=== PATIENT | female | born 1955 | race Caucasian/White ===

== ENCOUNTER → 2019-05-18 | Outpatient (CLI) | payer OTHER ==
[~2019-05-18] MED LIST: ASCRIPTIN1 TAB PO; ATENOLOL50 MG PO; CEFTIN250 MG PO; DUONEB 3 MG/3 ML3 M1; FLOVENT 110 M110 MCG; PREDNISONE20 MG PO; PREVACID30 MG PO; SINGULAIR10 MG PO
[2019-05-18 11:03] LABS: BASO % 0.8 % (0.0-1.0); EOS # 0.1 10*3/uL (0.0-0.4); HEMATOCRIT 46.6 % (37.0-47.0); HEMOGLOBIN 15.8 g/dl (12.0-16.0); LYMPH # 1.7 10*3/uL (1.3-4.4); LYMPH % 33.6 % (27.0-41.0); MEAN CELL VOLUME 96.1 fl (81.0-99.0); MEAN CORPUSCULAR HGB 32.6 pg (27.0-31.0); MEAN CORPUSCULAR HGB CONC 33.9 g/dl (33.0-37.0); MEAN PLATELET VOLUME 11.4 fl (9.6-12.3); MONO # 0.3 10*3/uL (0.1-1.0); MONO % 6.4 % (3.0-9.0); NEUT # 2.8 10*3/uL (2.3-7.9); PLATELET COUNT AUTOMATED 130 10*3/uL (130-400); RED BLOOD COUNT 4.85 10*6/uL (4.10-5.10); RED CELL DISTRI WIDTH 12.2 % (0-14.5)
[2019-05-18 11:33] LABS: ALBUMIN 3.9 gm/dl (3.1-4.5); ALKALINE PHOSPHATASE 109 U/L (45-117); BUN 12 mg/dl (7-24); CHLORIDE 101 mmol/L (98-107); CHOLESTEROL 208 mg/dL (<200); FREE T4 1.13 ng/dl (0.76-1.46); HDL CHOLESTEROL 61 mg/dl (40-60); LDL CHOLESTEROL 108 mg/dL (9-159); POTASSIUM 4.3 mmol/L (3.5-5.1); SGOT/AST 20 IU/L (3-35); SGPT/ALT 31 U/L (12-78); SODIUM 137 mmol/L (136-145); TOTAL PROTEIN 7.5 gm/dL (6.4-8.2); TRIGLYCERIDES 193 mg/dl (<150); VLDL CHOLESTEROL 39 mg/dL (6-40)
[2019-05-18 12:24] LABS: VITAMIN D, 25-HYDROXY 33.2 ng/mL (30-100)
== END | disposition home or self-care (01) ==
LOC: LAB 10:42
PROVIDERS: Internal Medicine
DX: Z13.21 Encounter for screening for nutritional disorder (principal); Z13.220 Encounter for screening for lipoid disorders; E55.9 Vitamin D deficiency, unspecified; E11.9 Type 2 diabetes mellitus without complications; I10 Essential (primary) hypertension

== ENCOUNTER → 2019-05-23 | Outpatient (CLI) | payer OTHER | END | disposition home or self-care (01) | LOC: RAD 10:49 | DX: Z13.820 Encounter for screening for osteoporosis (principal); Z78.0 Asymptomatic menopausal state; Z97.10 Presence of artificial limb (complete) (partial), unspecified ==

== ENCOUNTER → 2020-08-16 | Outpatient (CLI) | payer OTHER | END | disposition home or self-care (01) | LOC: US 09:58 → MRI 11:00 | PROVIDERS: ATTEND Internal Medicine | DX: I73.9 Peripheral vascular disease, unspecified (principal); M54.5 Low back pain ==

== ENCOUNTER → 2020-12-20 | Outpatient (CLI) | payer OTHER | END | disposition home or self-care (01) | LOC: RAD 09:05 | PROVIDERS: ATTEND Neurological Surgery | DX: M51.37 Other intervertebral disc degeneration, lumbosacral region (principal); M47.816 Spondylosis without myelopathy or radiculopathy, lumbar region ==

== ENCOUNTER → 2021-01-20 | Outpatient (CLI) | payer OTHER | END | disposition home or self-care (01) | LOC: CARD 08:30 | PROVIDERS: ATTEND Internal Medicine | DX: I51.7 Cardiomegaly (principal) ==

== ENCOUNTER → 2021-04-03 | Outpatient (CLI) | payer OTHER, MEDICARE ==
[2021-04-03 09:51] LABS: BASO % 0.8 % (0.0-1.0); EOS # 0.4 10*3/uL (0.0-0.4); EOS % 8.6 % (1.0-4.0); HEMATOCRIT 38.2 % (37.0-47.0); LYMPH # 0.9 10*3/uL (1.3-4.4); LYMPH % 19.2 % (27.0-41.0); MEAN CELL VOLUME 92.3 fl (81.0-99.0); MEAN CORPUSCULAR HGB 29.7 pg (27.0-31.0); MEAN CORPUSCULAR HGB CONC 32.2 g/dl (33.0-37.0); MEAN PLATELET VOLUME 10.1 fl (9.6-12.3); MONO # 0.3 10*3/uL (0.1-1.0); MONO % 5.9 % (3.0-9.0); NEUT # 3.1 10*3/uL (2.3-7.9); NEUT % 65.3 % (47.0-73.0); PLATELET COUNT AUTOMATED 193 10*3/uL (130-400); RED BLOOD COUNT 4.14 10*6/uL (4.10-5.10); RED CELL DISTRI WIDTH 13.2 % (0-14.5); WHITE BLOOD COUNT 4.8 10*3/uL (4.8-10.8)
[2021-04-03 10:19] LABS: ALBUMIN 3.4 gm/dl (3.1-4.5); ALKALINE PHOSPHATASE 113 U/L (45-117); BUN 17 mg/dl (7-24); CHLORIDE 103 mmol/L (98-107); CHOLESTEROL 159 mg/dL (<200); CREATININE 0.92 mg/dL (0.55-1.02); FREE T4 1.24 ng/dl (0.76-1.46); LDL CHOLESTEROL 69 mg/dL (9-159); POTASSIUM 4.5 mmol/L (3.5-5.1); SGOT/AST 12 IU/L (3-35); SGPT/ALT 18 U/L (12-78); SODIUM 135 mmol/L (136-145); TOTAL PROTEIN 7.4 gm/dL (6.4-8.2); TRIGLYCERIDES 166 mg/dl (<150)
[2021-04-03 10:32] LABS: VITAMIN D, 25-HYDROXY 84.8 ng/mL (30-100)
== END | disposition home or self-care (01) ==
LOC: LAB 09:32
PROVIDERS: ATTEND Internal Medicine
DX: I10 Essential (primary) hypertension (principal); E55.9 Vitamin D deficiency, unspecified; E03.9 Hypothyroidism, unspecified; R53.81 Other malaise; E11.9 Type 2 diabetes mellitus without complications; D52.9 Folate deficiency anemia, unspecified; D51.9 Vitamin B12 deficiency anemia, unspecified; R70.0 Elevated erythrocyte sedimentation rate; R79.82 Elevated C-reactive protein (CRP); R74.8 Abnormal levels of other serum enzymes; R79.89 Other specified abnormal findings of blood chemistry; Z13.0 Encounter for screening for diseases of the blood and blood-forming organs and certain disorders involving the immune mechanism; Z13.1 Encounter for screening for diabetes mellitus; Z13.21 Encounter for screening for nutritional disorder; Z13.220 Encounter for screening for lipoid disorders; Z00.01 Encounter for general adult medical examination with abnormal findings

== ENCOUNTER 2022-03-04 11:53 | Inpatient (IN) | payer MEDICARE, OTHER ==
[~2022-03-04] VITALS: Ht 157.4 cm; Wt 103.1 kg
[2022-03-04 12:05] VITALS: BP 116/57
[2022-03-04 13:35] LABS: MEAN CELL VOLUME 90.4 fl (81.0-99.0); MEAN CORPUSCULAR HGB 30.2 pg (27.0-31.0); MEAN CORPUSCULAR HGB CONC 33.4 g/dl (33.0-37.0); PLATELET COUNT AUTOMATED 90 10*3/uL (130-400); RED BLOOD COUNT 3.54 10*6/uL (4.10-5.10); RED CELL DISTRI WIDTH 13.8 % (0-14.5); WHITE BLOOD COUNT 15.5 10*3/uL (4.8-10.8)
[2022-03-04 13:39] LABS: MANUAL DIFF REFLEX YES
[2022-03-04 13:44] LABS: ACT PARTIAL THROMBO TIME 23.7 SECONDS (20.0-32.1)
[2022-03-04 13:55] LABS: CREATININE 2.15 mg/dL (0.55-1.02); POTASSIUM 4.3 mmol/L (3.5-5.1); TOTAL PROTEIN 6.9 gm/dL (6.4-8.2)
[2022-03-04 14:00] LABS: TOTAL CELLS COUNTED 100 #CELLS
[2022-03-04 14:01] LABS: PLATELET SUFFICIENCY LOW (NORMAL); POLYCHROMASIA SLIGHT
[2022-03-04 16:08] VITALS: BP 126/61
[2022-03-04] MEDS ORDERED: ESOMEPRAZOLE MA40 M1 PO (17:36)
[2022-03-04] MEDS ORDERED: LISINOPRIL10 M1 PO (17:37)
[2022-03-04] MEDS ORDERED: FUROSEMIDE40 MG PO (17:37)
[2022-03-04] MEDS ORDERED: GLYBURIDE5 MG PO (19:36)
[2022-03-04] MEDS ORDERED: GABAPENTIN800 MG PO (19:36)
[2022-03-04] MEDS ORDERED: TRULICITY0.75 MG/0. SC (19:39)
[2022-03-04 19:53] LABS: BILIRUBIN Negative (Negative); BLOOD Trace-Lysed (Negative); CLARITY Turbid (Clear); COLOR Dark Yellow (Yellow); GLUCOSE 3+ (Negative); KETONE 1+ (Negative); LEUKO ESTERASE 1+ (Negative); NITRITE Negative (Negative); SPECIFIC GRAVITY >= 1.030 (1.001-1.030)
[2022-03-04 20:05] LABS: BACTERIA 4+
[2022-03-04 20:06] LABS: YEAST 4+
[2022-03-04 21:06] VITALS: BP 126/77
[2022-03-04 21:15] VITALS: BP 137/62
[2022-03-05] VITALS: BP 146/66
[2022-03-05 05:20] LABS: CREATININE 1.91 mg/dL (0.55-1.02); POTASSIUM 3.6 mmol/L (3.5-5.1); TOTAL PROTEIN 5.8 gm/dL (6.4-8.2)
[2022-03-05 08:00] VITALS: BP 117/51
[2022-03-05 12:00] VITALS: BP 100/42
[2022-03-05 15:49] VITALS: BP 113/61
[2022-03-05 20:10] VITALS: BP 90/42
[2022-03-05 21:11] VITALS: BP 109/52
[2022-03-06] VITALS (7 sets, daily range): BP systolic 90–143; BP diastolic 40–66
[2022-03-06 07:48] LABS: HEMATOCRIT 29.4 % (37.0-47.0); MEAN CELL VOLUME 92.5 fl (81.0-99.0); MEAN CORPUSCULAR HGB 30.8 pg (27.0-31.0); MEAN CORPUSCULAR HGB CONC 33.3 g/dl (33.0-37.0); PLATELET COUNT AUTOMATED 97 10*3/uL (130-400); RED BLOOD COUNT 3.18 10*6/uL (4.10-5.10); RED CELL DISTRI WIDTH 14.6 % (0-14.5); WHITE BLOOD COUNT 17.3 10*3/uL (4.8-10.8)
[2022-03-06 07:49] LABS: MANUAL DIFF REFLEX YES
[2022-03-06 07:58] LABS: CREATININE 1.76 mg/dL (0.55-1.02); POTASSIUM 3.7 mmol/L (3.5-5.1)
[2022-03-06 08:12] LABS: BURR CELLS FEW; PLATELET SUFFICIENCY LOW (NORMAL); POLYCHROMASIA SLIGHT; ROULEAUX SLIGHT; TOTAL CELLS COUNTED 100 #CELLS
[2022-03-07] VITALS: BP 131/53
[2022-03-07 05:24] LABS: CREATININE 1.42 mg/dL (0.55-1.02); POTASSIUM 3.7 mmol/L (3.5-5.1)
[2022-03-07 06:14] LABS: HEMATOCRIT 29.6 % (37.0-47.0); MEAN CELL VOLUME 91.1 fl (81.0-99.0); MEAN CORPUSCULAR HGB 30.8 pg (27.0-31.0); MEAN CORPUSCULAR HGB CONC 33.8 g/dl (33.0-37.0); PLATELET COUNT AUTOMATED 99 10*3/uL (130-400); RED BLOOD COUNT 3.25 10*6/uL (4.10-5.10); RED CELL DISTRI WIDTH 14.8 % (0-14.5); WHITE BLOOD COUNT 12.5 10*3/uL (4.8-10.8)
[2022-03-07 06:21] LABS: MANUAL DIFF REFLEX YES
[2022-03-07 06:59] LABS: PLATELET SUFFICIENCY LOW (NORMAL); TOTAL CELLS COUNTED 100 #CELLS
[2022-03-07 08:00] VITALS: BP 127/59
[2022-03-07 12:00] VITALS: BP 130/59
[2022-03-07 16:00] VITALS: BP 119/56
[2022-03-07 20:00] VITALS: BP 132/60
[2022-03-08] VITALS: BP 143/64
[2022-03-14 10:07] LABS: RESULT 1 Candida glabrata (.)
[2022-03-14 10:07] LABS: RESULT 1 Candida glabrata (.)
[2022-03-19 12:07] LABS: AMPHOTERICIN B MIC 1.0 ug/mL (.); FLUCONAZOLE MIC 8.0 ug/mL (.); FLUCYTOSINE MIC 0.06 ug/mL or less (.); ITRACONAZOLE MIC 0.5 ug/mL (.); KETOCONAZOLE MIC 0.25 ug/mL (.); VORICONAZOLE MIC 0.25 ug/mL (.); YEAST ID Candida glabrata (.)
[2022-03-19 12:07] LABS: AMPHOTERICIN B MIC 1.0 ug/mL (.); FLUCONAZOLE MIC 8.0 ug/mL (.); FLUCYTOSINE MIC 0.06 ug/mL or less (.); ITRACONAZOLE MIC 0.5 ug/mL (.); KETOCONAZOLE MIC 0.25 ug/mL (.); VORICONAZOLE MIC 0.12 ug/mL (.); YEAST ID Candida glabrata (.)
== END 2022-03-08 08:09 | disposition short-term general hospital (02) | DRG 871 ==
LOC: ED 11:53 → 4E 17:40 → EDHOLD 17:40 → 4E 20:32
PROVIDERS: Emergency Medicine; Internal Medicine Infectious Disease; ADMIT Internal Medicine; ATTEND Internal Medicine
DX: A41.51 Sepsis due to Escherichia coli [E. coli] (principal); N17.0 Acute kidney failure with tubular necrosis; N13.6 Pyonephrosis; E44.1 Mild protein-calorie malnutrition; Z68.41 Body mass index [BMI] 40.0-44.9, adult; E86.0 Dehydration; J45.909 Unspecified asthma, uncomplicated; K21.9 Gastro-esophageal reflux disease without esophagitis; R62.7 Adult failure to thrive; N18.32 Chronic kidney disease, stage 3b; E11.22 Type 2 diabetes mellitus with diabetic chronic kidney disease; M48.061 Spinal stenosis, lumbar region without neurogenic claudication; M54.16 Radiculopathy, lumbar region; Z90.710 Acquired absence of both cervix and uterus; Z98.51 Tubal ligation status; Z82.49 Family history of ischemic heart disease and other diseases of the circulatory system

== ENCOUNTER → 2022-03-26 | Outpatient (CLI) | payer MEDICARE, OTHER ==
[~2022-03-26] MED LIST changes: +ESOMEPRAZOLE MA40 M1 PO; +FUROSEMIDE40 MG PO; +GABAPENTIN800 MG PO; +GLYBURIDE5 MG PO; +LISINOPRIL10 M1 PO; +TRULICITY0.75 MG/0. SC
[2022-03-26 16:11] LABS: BASO # 0.1 10*3/uL (0.0-0.1); EOS # 0.2 10*3/uL (0.0-0.4); EOS % 4.4 % (1.0-4.0); HEMATOCRIT 35.4 % (37.0-47.0); LYMPH # 1.7 10*3/uL (1.3-4.4); LYMPH % 34.7 % (27.0-41.0); MEAN CELL VOLUME 97.5 fl (81.0-99.0); MEAN CORPUSCULAR HGB 31.1 pg (27.0-31.0); MEAN CORPUSCULAR HGB CONC 31.9 g/dl (33.0-37.0); MEAN PLATELET VOLUME 11.9 fl (9.6-12.3); MONO # 0.4 10*3/uL (0.1-1.0); MONO % 7.3 % (3.0-9.0); NEUT # 2.6 10*3/uL (2.3-7.9); NEUT % 52.4 % (47.0-73.0); PLATELET COUNT AUTOMATED 289 10*3/uL (130-400); RED BLOOD COUNT 3.63 10*6/uL (4.10-5.10); RED CELL DISTRI WIDTH 15.5 % (0-14.5)
[2022-03-26 16:23] LABS: BILIRUBIN Negative (Negative); BLOOD 1+ (Negative); CLARITY Turbid (Clear); COLOR Yellow (Yellow); GLUCOSE 1+ (Negative); KETONE Negative (Negative); LEUKO ESTERASE 3+ (Negative); NITRITE Negative (Negative); PH 6.5 (4.5-8.0); SPECIFIC GRAVITY 1.015 (1.001-1.030)
[2022-03-26 16:28] LABS: CREATININE 1.2 mg/dL (0.55-1.02); POTASSIUM 4.2 mmol/L (3.5-5.1); TOTAL PROTEIN 7.8 gm/dL (6.4-8.2)
[2022-03-26 16:32] LABS: BACTERIA 3+; MUCOUS 1+; WBC TNTC wbc/hpf (0-5)
== END | disposition home or self-care (01) ==
LOC: LAB 15:33
PROVIDERS: ATTEND Urology
DX: I10 Essential (primary) hypertension (principal)

== ENCOUNTER → 2022-04-22 | Outpatient (CLI) | payer MEDICARE, OTHER | END | disposition home or self-care (01) | LOC: RAD 10:30 | PROVIDERS: ATTEND Urology | DX: N20.0 Calculus of kidney (principal); M16.0 Bilateral primary osteoarthritis of hip ==

== ENCOUNTER → 2023-02-08 | Outpatient (CLI) | payer OTHER ==
[2023-02-08 10:43] LABS: BASO % 0.6 % (0.0-1.0); EOS # 0.1 10*3/uL (0.0-0.4); EOS % 2.6 % (1.0-4.0); HEMATOCRIT 37.8 % (37.0-47.0); LYMPH % 19.4 % (27.0-41.0); MEAN CELL VOLUME 100.3 fl (81.0-99.0); MEAN CORPUSCULAR HGB 31.6 pg (27.0-31.0); MEAN CORPUSCULAR HGB CONC 31.5 g/dl (33.0-37.0); MEAN PLATELET VOLUME 11.4 fl (9.6-12.3); MONO # 0.4 10*3/uL (0.1-1.0); MONO % 6.6 % (3.0-9.0); NEUT # 3.7 10*3/uL (2.3-7.9); NEUT % 70.4 % (47.0-73.0); PLATELET COUNT AUTOMATED 176 10*3/uL (130-400); RED BLOOD COUNT 3.77 10*6/uL (4.10-5.10); RED CELL DISTRI WIDTH 13.2 % (0-14.5); WHITE BLOOD COUNT 5.3 10*3/uL (4.8-10.8)
[2023-02-08 11:14] LABS: POTASSIUM 5.3 mmol/L (3.4-5.1); THYROID STIM HORMONE (HS) 1.656 uIU/ml (0.550-4.780); TOTAL PROTEIN 7.2 gm/dL (6.0-8.0)
[2023-02-08 11:31] LABS: VITAMIN D, 25-HYDROXY 22.2 ng/mL (30-100)
== END | disposition home or self-care (01) ==
LOC: LAB 10:03
PROVIDERS: ATTEND Internal Medicine
DX: I10 Essential (primary) hypertension (principal); E11.65 Type 2 diabetes mellitus with hyperglycemia; E11.40 Type 2 diabetes mellitus with diabetic neuropathy, unspecified; F32.0 Major depressive disorder, single episode, mild

== ENCOUNTER → 2023-02-26 | Outpatient (CLI) | payer OTHER | END | disposition home or self-care (01) | LOC: US 00:18 | PROVIDERS: ATTEND Internal Medicine | DX: N20.0 Calculus of kidney (principal); R79.89 Other specified abnormal findings of blood chemistry ==

== ENCOUNTER → 2023-03-08 | Outpatient (CLI) | payer OTHER | END | disposition home or self-care (01) | LOC: RESCLI 01:26 | PROVIDERS: ATTEND Internal Medicine | DX: J45.998 Other asthma (principal); I10 Essential (primary) hypertension; E13.65 Other specified diabetes mellitus with hyperglycemia; M19.90 Unspecified osteoarthritis, unspecified site; K21.9 Gastro-esophageal reflux disease without esophagitis; E78.5 Hyperlipidemia, unspecified; R11.0 Nausea; Z98.890 Other specified postprocedural states; E55.9 Vitamin D deficiency, unspecified; M54.9 Dorsalgia, unspecified; G62.9 Polyneuropathy, unspecified; Z82.49 Family history of ischemic heart disease and other diseases of the circulatory system; Z79.899 Other long term (current) drug therapy; Z88.8 Allergy status to other drugs, medicaments and biological substances ==

== ENCOUNTER 2023-06-02 05:53 | Inpatient (IN) | payer OTHER ==
[~2023-06-02] VITALS: Ht 157.5 cm; Wt 103.1 kg
[2023-06-02 06:00] VITALS: BP 178/147
[2023-06-02 06:30] LABS: BASO % 0.4 % (0.0-1.0); EOS % 0.2 % (1.0-4.0); HEMATOCRIT 42.6 % (37.0-47.0); LYMPH # 0.4 10*3/uL (1.3-4.4); LYMPH % 8.5 % (27.0-41.0); MEAN CELL VOLUME 97.7 fl (81.0-99.0); MEAN CORPUSCULAR HGB CONC 31.7 g/dl (33.0-37.0); MEAN PLATELET VOLUME 11.5 fl (9.6-12.3); MONO # 0.3 10*3/uL (0.1-1.0); MONO % 6.9 % (3.0-9.0); NEUT # 4.1 10*3/uL (2.3-7.9); NEUT % 83.6 % (47.0-73.0); PLATELET COUNT AUTOMATED 167 10*3/uL (130-400); RED BLOOD COUNT 4.36 10*6/uL (4.10-5.10); WHITE BLOOD COUNT 4.9 10*3/uL (4.8-10.8)
[2023-06-02 06:55] LABS: POTASSIUM 5.6 mmol/L (3.4-5.1); TOTAL PROTEIN 7.8 gm/dL (6.0-8.0)
[2023-06-02 10:14] LABS: BILIRUBIN Negative (Negative); BLOOD 2+ (Negative); CLARITY Cloudy (Clear); COLOR Yellow (Yellow); GLUCOSE 1+ (Negative); KETONE Negative (Negative); LEUKO ESTERASE 2+ (Negative); NITRITE Negative (Negative); SPECIFIC GRAVITY 1.015 (1.001-1.030)
[2023-06-02 10:25] VITALS: BP 152/80
[2023-06-02 10:32] LABS: BACTERIA 4+; RBC 31-40 rbc/hpf (0-2); WBC 41-50 wbc/hpf (0-5)
[2023-06-02 19:01] VITALS: BP 157/59
[2023-06-02 22:34] VITALS: BP 147/63
[2023-06-03 06:08] LABS: HBSAG Negative (Negative); HEP B CORE AB, IGM Negative (Negative); HEPATITIS C ANTIBODY Non Reactive (Non Reactive)
[2023-06-03 07:29] LABS: BASO % 0.4 % (0.0-1.0); EOS # 0.1 10*3/uL (0.0-0.4); HEMATOCRIT 34.3 % (37.0-47.0); LYMPH # 0.3 10*3/uL (1.3-4.4); LYMPH % 3.8 % (27.0-41.0); MEAN CELL VOLUME 97.7 fl (81.0-99.0); MEAN CORPUSCULAR HGB 30.5 pg (27.0-31.0); MEAN CORPUSCULAR HGB CONC 31.2 g/dl (33.0-37.0); MONO # 0.9 10*3/uL (0.1-1.0); MONO % 11.5 % (3.0-9.0); NEUT # 6.4 10*3/uL (2.3-7.9); PLATELET COUNT AUTOMATED 141 10*3/uL (130-400); RED BLOOD COUNT 3.51 10*6/uL (4.10-5.10); RED CELL DISTRI WIDTH 13.2 % (0-14.5); WHITE BLOOD COUNT 7.7 10*3/uL (4.8-10.8)
[2023-06-03 07:59] LABS: TOTAL PROTEIN 6.4 gm/dL (6.0-8.0)
[2023-06-03 08:00] VITALS: BP 128/43
[2023-06-03 08:01] LABS: POTASSIUM 4.3 mmol/L (3.4-5.1)
[2023-06-03 12:00] VITALS: BP 149/56
[2023-06-03 16:00] VITALS: BP 139/51
[2023-06-03] MEDS ORDERED: FARXIGA5 M1 PO (17:30)
[2023-06-03] MEDS ORDERED: GLYBURIDE5 MG PO (17:31)
[2023-06-03 17:38] LABS: URINE CREATININE RANDOM 89.12 mg/dL
[2023-06-03 17:53] LABS: URINE CHLORIDE, RANDOM < 20 mmol/L
[2023-06-03 20:00] VITALS: BP 142/52
[2023-06-04] VITALS: BP 115/52
[2023-06-04 08:00] VITALS: BP 108/48
[2023-06-04 12:00] VITALS: BP 108/62
[2023-06-04 16:00] VITALS: BP 126/55
[2023-06-04 20:00] VITALS: BP 159/62
[2023-06-05] VITALS: BP 153/56
[2023-06-05 07:28] LABS: BASO % 0.4 % (0.0-1.0); EOS % 0.4 % (1.0-4.0); HEMATOCRIT 33.5 % (37.0-47.0); LYMPH # 0.7 10*3/uL (1.3-4.4); LYMPH % 9.4 % (27.0-41.0); MEAN CELL VOLUME 97.1 fl (81.0-99.0); MEAN CORPUSCULAR HGB 30.7 pg (27.0-31.0); MEAN CORPUSCULAR HGB CONC 31.6 g/dl (33.0-37.0); MEAN PLATELET VOLUME 12.6 fl (9.6-12.3); MONO # 0.6 10*3/uL (0.1-1.0); MONO % 8.3 % (3.0-9.0); NEUT # 6.3 10*3/uL (2.3-7.9); NEUT % 81.1 % (47.0-73.0); PLATELET COUNT AUTOMATED 121 10*3/uL (130-400); RED BLOOD COUNT 3.45 10*6/uL (4.10-5.10); RED CELL DISTRI WIDTH 13.3 % (0-14.5); WHITE BLOOD COUNT 7.7 10*3/uL (4.8-10.8)
[2023-06-05 07:34] LABS: POTASSIUM 3.9 mmol/L (3.4-5.1)
[2023-06-05 08:00] VITALS: BP 142/60
[2023-06-05 12:00] VITALS: BP 140/59
[2023-06-05 16:00] VITALS: BP 156/61
[2023-06-05] MEDS ORDERED: ONDANSETRON8 MG PO (17:53)
[2023-06-05] MEDS ORDERED: AMOX-CLAV 875-1 EACH PO (17:53)
== END 2023-06-05 18:45 | disposition home or self-care (01) | DRG 690 ==
LOC: ED 05:53 → 4E 09:28 → EDHOLD 09:28 → 4E 21:25
PROVIDERS: Emergency Medicine; Internal Medicine; Internal Medicine Nephrology; ADMIT Internal Medicine; ATTEND Internal Medicine
DX: N39.0 Urinary tract infection, site not specified (principal); E44.1 Mild protein-calorie malnutrition; N17.9 Acute kidney failure, unspecified; N18.4 Chronic kidney disease, stage 4 (severe); E11.22 Type 2 diabetes mellitus with diabetic chronic kidney disease; E86.1 Hypovolemia; I12.9 Hypertensive chronic kidney disease with stage 1 through stage 4 chronic kidney disease, or unspecified chronic kidney disease; E86.0 Dehydration; E66.9 Obesity, unspecified; E11.40 Type 2 diabetes mellitus with diabetic neuropathy, unspecified; K21.9 Gastro-esophageal reflux disease without esophagitis; E87.5 Hyperkalemia; B96.1 Klebsiella pneumoniae [K. pneumoniae] as the cause of diseases classified elsewhere; K75.9 Inflammatory liver disease, unspecified; K76.0 Fatty (change of) liver, not elsewhere classified; Z82.49 Family history of ischemic heart disease and other diseases of the circulatory system; Z98.51 Tubal ligation status; Z90.710 Acquired absence of both cervix and uterus; Z87.442 Personal history of urinary calculi

== ENCOUNTER → 2023-06-24 | Outpatient (CLI) | payer OTHER, MEDICARE ==
[~2023-06-24] MED LIST changes: +AMOX-CLAV 875-1 EACH PO; +FARXIGA5 M1 PO; +ONDANSETRON8 MG PO
[2023-06-24 10:58] LABS: BASO % 0.9 % (0.0-1.0); EOS # 0.1 10*3/uL (0.0-0.4); EOS % 3.7 % (1.0-4.0); HEMATOCRIT 38.9 % (37.0-47.0); LYMPH # 0.8 10*3/uL (1.3-4.4); LYMPH % 24.5 % (27.0-41.0); MEAN CELL VOLUME 99.5 fl (81.0-99.0); MEAN CORPUSCULAR HGB 31.5 pg (27.0-31.0); MEAN CORPUSCULAR HGB CONC 31.6 g/dl (33.0-37.0); MEAN PLATELET VOLUME 11.9 fl (9.6-12.3); MONO # 0.2 10*3/uL (0.1-1.0); MONO % 7.5 % (3.0-9.0); NEUT % 63.1 % (47.0-73.0); PLATELET COUNT AUTOMATED 151 10*3/uL (130-400); RED BLOOD COUNT 3.91 10*6/uL (4.10-5.10); RED CELL DISTRI WIDTH 14.7 % (0-14.5); WHITE BLOOD COUNT 3.2 10*3/uL (4.8-10.8)
[2023-06-24 11:30] LABS: TOTAL PROTEIN 7.5 gm/dL (6.0-8.0)
== END | disposition home or self-care (01) ==
LOC: LAB 10:09
PROVIDERS: ATTEND Internal Medicine
DX: Z13.0 Encounter for screening for diseases of the blood and blood-forming organs and certain disorders involving the immune mechanism (principal); Z13.1 Encounter for screening for diabetes mellitus; Z13.21 Encounter for screening for nutritional disorder; Z13.220 Encounter for screening for lipoid disorders; Z13.228 Encounter for screening for other metabolic disorders; Z13.29 Encounter for screening for other suspected endocrine disorder; Z13.6 Encounter for screening for cardiovascular disorders; Z13.89 Encounter for screening for other disorder; Z13.9 Encounter for screening, unspecified; I10 Essential (primary) hypertension; E11.40 Type 2 diabetes mellitus with diabetic neuropathy, unspecified; F32.0 Major depressive disorder, single episode, mild; F33.0 Major depressive disorder, recurrent, mild

== ENCOUNTER 2023-06-25 15:23 | Emergency (ER) | payer OTHER ==
[~2023-06-25] VITALS: Ht 157.4 cm; Wt 103.0 kg
[2023-06-25 15:46] LABS: BASO % 0.5 % (0.0-1.0); EOS # 0.2 10*3/uL (0.0-0.4); EOS % 3.2 % (1.0-4.0); HEMATOCRIT 39.6 % (37.0-47.0); LYMPH # 1.3 10*3/uL (1.3-4.4); LYMPH % 22.2 % (27.0-41.0); MEAN CELL VOLUME 99.7 fl (81.0-99.0); MEAN CORPUSCULAR HGB 31.7 pg (27.0-31.0); MEAN CORPUSCULAR HGB CONC 31.8 g/dl (33.0-37.0); MEAN PLATELET VOLUME 11.7 fl (9.6-12.3); MONO # 0.4 10*3/uL (0.1-1.0); MONO % 7.7 % (3.0-9.0); NEUT # 3.7 10*3/uL (2.3-7.9); NEUT % 66.2 % (47.0-73.0); PLATELET COUNT AUTOMATED 162 10*3/uL (130-400); RED BLOOD COUNT 3.97 10*6/uL (4.10-5.10); RED CELL DISTRI WIDTH 14.6 % (0-14.5); WHITE BLOOD COUNT 5.6 10*3/uL (4.8-10.8)
[2023-06-25 15:58] LABS: ACT PARTIAL THROMBO TIME 27.3 SECONDS (20.0-32.1)
[2023-06-25 16:14] LABS: ALKALINE PHOSPHATASE 215 U/L (46-116); BUN 36 mg/dl (9-23); CHLORIDE 107 mmol/L (98-107); LIPASE 110 U/L (12-53); SGPT/ALT 31 U/L (5-49); TOTAL PROTEIN 7.8 gm/dL (6.0-8.0)
[2023-06-25 16:15] LABS: POTASSIUM 5.2 mmol/L (3.4-5.1)
== END 2023-06-25 18:19 | disposition home or self-care (01) ==
LOC: ED 15:23
PROVIDERS: Emergency Medicine
DX: E87.5 Hyperkalemia (principal); I10 Essential (primary) hypertension; K21.9 Gastro-esophageal reflux disease without esophagitis; M19.90 Unspecified osteoarthritis, unspecified site; E11.9 Type 2 diabetes mellitus without complications; Z98.51 Tubal ligation status; Z90.710 Acquired absence of both cervix and uterus; Z98.890 Other specified postprocedural states

== ENCOUNTER → 2023-06-25 | Outpatient (CLI) | payer OTHER ==
[2023-06-25 13:41] LABS: POTASSIUM 6.2 mmol/L (3.4-5.1)
== END | disposition home or self-care (01) ==
LOC: LAB 11:00
PROVIDERS: ATTEND Internal Medicine
DX: Z13.220 Encounter for screening for lipoid disorders (principal); Z13.228 Encounter for screening for other metabolic disorders; Z13.6 Encounter for screening for cardiovascular disorders; Z13.89 Encounter for screening for other disorder; Z13.21 Encounter for screening for nutritional disorder; Z13.1 Encounter for screening for diabetes mellitus; D52.9 Folate deficiency anemia, unspecified; E03.9 Hypothyroidism, unspecified; D51.9 Vitamin B12 deficiency anemia, unspecified; E55.9 Vitamin D deficiency, unspecified; R79.89 Other specified abnormal findings of blood chemistry; R53.81 Other malaise

== ENCOUNTER → 2024-03-21 | Outpatient (CLI) | payer MEDICARE ==
[2024-03-21 09:52] LABS: BASO % 0.5 % (0.0-1.0); EOS # 0.1 10*3/uL (0.0-0.4); EOS % 1.2 % (1.0-4.0); HEMATOCRIT 38.3 % (37.0-47.0); LYMPH # 0.9 10*3/uL (1.3-4.4); LYMPH % 11.8 % (27.0-41.0); MEAN CELL VOLUME 95.3 fl (81.0-99.0); MEAN CORPUSCULAR HGB 31.1 pg (27.0-31.0); MEAN CORPUSCULAR HGB CONC 32.6 g/dl (33.0-37.0); MEAN PLATELET VOLUME 11.6 fl (9.6-12.3); MONO # 0.4 10*3/uL (0.1-1.0); MONO % 4.7 % (3.0-9.0); NEUT # 6.3 10*3/uL (2.3-7.9); NEUT % 81.4 % (47.0-73.0); PLATELET COUNT AUTOMATED 174 10*3/uL (130-400); RED BLOOD COUNT 4.02 10*6/uL (4.10-5.10); RED CELL DISTRI WIDTH 13.9 % (0-14.5); WHITE BLOOD COUNT 7.8 10*3/uL (4.8-10.8)
[2024-03-21 10:35] LABS: VITAMIN D, 25-HYDROXY 41.7 ng/mL (30-100)
[2024-03-21 10:36] LABS: FREE T4 1.13 ng/dl (0.89-1.76); TOTAL PROTEIN 7.5 gm/dL (6.0-8.0)
== END | disposition home or self-care (01) ==
LOC: LAB 09:19
PROVIDERS: ATTEND Internal Medicine
DX: I10 Essential (primary) hypertension (principal); Z79.899 Other long term (current) drug therapy; Z79.891 Long term (current) use of opiate analgesic

== ENCOUNTER → 2024-04-24 | Outpatient (CLI) | payer MEDICARE | END | disposition home or self-care (01) | LOC: RESCLI 00:34 | PROVIDERS: ATTEND Family Medicine | DX: E11.40 Type 2 diabetes mellitus with diabetic neuropathy, unspecified (principal); I10 Essential (primary) hypertension; K21.9 Gastro-esophageal reflux disease without esophagitis; J45.998 Other asthma; E55.9 Vitamin D deficiency, unspecified; E78.5 Hyperlipidemia, unspecified; Z82.49 Family history of ischemic heart disease and other diseases of the circulatory system; R60.0 Localized edema; Z98.890 Other specified postprocedural states; Z82.3 Family history of stroke; Z79.899 Other long term (current) drug therapy ==

== ENCOUNTER 2024-07-14 03:34 | Emergency (ER) | payer MEDICARE ==
[~2024-07-14] VITALS: Ht 157.4 cm; Wt 99.8 kg
[~2024-07-14 03:34] MED LIST changes: +CIPRO500 MG PO; +HYDROCODONE-AC1 EAC1 PO; +LEVEMIR100 UNIT/1 SC; +LIPITOR40 MG PO; +METOPROLOL SUCC50 M1 PO; +ZOLOFT50 MG PO
[2024-07-14 04:29] LABS: BASO % 0.1 % (0.0-1.0); EOS % 0.3 % (1.0-4.0); HEMATOCRIT 29.3 % (37.0-47.0); MEAN CELL VOLUME 97.7 fl (81.0-99.0); MEAN CORPUSCULAR HGB 31.7 pg (27.0-31.0); MEAN CORPUSCULAR HGB CONC 32.4 g/dl (33.0-37.0); MEAN PLATELET VOLUME 11.6 fl (9.6-12.3); MONO % 6.9 % (3.0-9.0); NEUT # 12.4 10*3/uL (2.3-7.9); NEUT % 87.7 % (47.0-73.0); PLATELET COUNT AUTOMATED 200 10*3/uL (130-400); RED CELL DISTRI WIDTH 13.9 % (0-14.5); WHITE BLOOD COUNT 14.1 10*3/uL (4.8-10.8)
[2024-07-14 04:54] LABS: POTASSIUM 3.6 mmol/L (3.4-5.1)
== END 2024-07-14 10:35 | disposition home or self-care (01) ==
LOC: ED 03:34
PROVIDERS: Emergency Medicine
DX: E11.649 Type 2 diabetes mellitus with hypoglycemia without coma (principal); E87.5 Hyperkalemia; E11.22 Type 2 diabetes mellitus with diabetic chronic kidney disease; R10.11 Right upper quadrant pain; I12.9 Hypertensive chronic kidney disease with stage 1 through stage 4 chronic kidney disease, or unspecified chronic kidney disease; N18.9 Chronic kidney disease, unspecified; K21.9 Gastro-esophageal reflux disease without esophagitis; M19.90 Unspecified osteoarthritis, unspecified site; Z90.710 Acquired absence of both cervix and uterus; Z98.890 Other specified postprocedural states

== ENCOUNTER 2024-07-20 13:15 | Emergency (ER) | payer MEDICARE ==
[~2024-07-20] VITALS: Wt 99.8 kg
[2024-07-20] MEDS ORDERED: IOHEXOL 300 MG/ML 100 ML VIAL IV ONE (14:00)
[2024-07-20] MEDS ORDERED: ZESTRIL20 MG PO (14:10)
[2024-07-20] MEDS ORDERED: BUMETANIDE1 MG PO (14:14)
[2024-07-20 14:25] LABS: BASO # 0.1 10*3/uL (0.0-0.1); BASO % 0.5 % (0.0-1.0); EOS # 0.1 10*3/uL (0.0-0.4); EOS % 0.7 % (1.0-4.0); HEMATOCRIT 32.8 % (37.0-47.0); MEAN CELL VOLUME 98.2 fl (81.0-99.0); MEAN CORPUSCULAR HGB 30.5 pg (27.0-31.0); MEAN CORPUSCULAR HGB CONC 31.1 g/dl (33.0-37.0); MEAN PLATELET VOLUME 11.1 fl (9.6-12.3); MONO # 0.6 10*3/uL (0.1-1.0); MONO % 5.2 % (3.0-9.0); NEUT # 9.1 10*3/uL (2.3-7.9); PLATELET COUNT AUTOMATED 296 10*3/uL (130-400); RED BLOOD COUNT 3.34 10*6/uL (4.10-5.10); RED CELL DISTRI WIDTH 13.1 % (0-14.5)
[2024-07-20 14:49] LABS: POTASSIUM 4.5 mmol/L (3.4-5.1); TOTAL PROTEIN 6.9 gm/dL (6.0-8.0)
[2024-07-20] MEDS ORDERED: FUROSEMIDE 20 MG/2 ML VIAL IV ONE (14:55)
[2024-07-20] MEDS ORDERED: INSULIN REGULAR, HUMAN 1 UNIT/0.01 ML IV ONE (14:55)
[2024-07-20] MEDS ORDERED: Ceftriaxone Sodium 1 GM/10 ML SYR IV ONE (15:00)
[2024-07-20] MEDS ORDERED: Metoprolol Tartrate 5 MG/5 ML VIAL IV ONE (15:00)
[2024-07-20] MEDS ORDERED: AZITHROMYCIN 250 MG TAB PO ONE (15:00)
[2024-07-20] MEDS ORDERED: Diltiazem Hydrochloride 25 MG/5 ML VIAL IV ONE (15:45)
[2024-07-20 17:35] LABS: BILIRUBIN Negative (Negative); BLOOD 3+ (Negative); CLARITY Clear (Clear); COLOR Yellow (Yellow); GLUCOSE 3+ (Negative); KETONE Trace (Negative); LEUKO ESTERASE Negative (Negative); NITRITE Negative (Negative); UROBILINOGEN 0.2 E.U./dl (0.0-1.0)
[2024-07-20] MEDS ORDERED: Diltiazem Hydrochloride 5 ML IV ONE (17:35)
[2024-07-20 17:45] LABS: BACTERIA 1+; RBC 16-20 rbc/hpf (0-2); YEAST 1+
== END 2024-07-20 20:50 | disposition short-term general hospital (02) ==
LOC: ED 13:15
DX: I48.20 Chronic atrial fibrillation, unspecified (principal); I11.0 Hypertensive heart disease with heart failure; I50.9 Heart failure, unspecified; E11.65 Type 2 diabetes mellitus with hyperglycemia; K86.3 Pseudocyst of pancreas; K85.90 Acute pancreatitis without necrosis or infection, unspecified; Z91.199 Patient's noncompliance with other medical treatment and regimen due to unspecified reason; K21.9 Gastro-esophageal reflux disease without esophagitis; M19.90 Unspecified osteoarthritis, unspecified site; R11.2 Nausea with vomiting, unspecified; Z90.710 Acquired absence of both cervix and uterus; Z98.890 Other specified postprocedural states

== ENCOUNTER 2024-08-12 11:33 | Inpatient (IN) | payer MEDICARE ==
[~2024-08-12] VITALS: Ht 157.5 cm; Wt 100.7 kg
[~2024-08-12 11:33] MED LIST changes: +AMIODARONE HYD200 MG PO; +BUMETANIDE1 MG PO; +ELIQUIS5 M1 PO; +FUROSEMIDE20 M1 PO; +HYDROCODONE-AC1 EAC2 PO; +NEURONTIN400 MG PO; +NORVASC2.5 MG PO; +ZESTRIL20 MG PO
[2024-08-12 12:02] VITALS: BP 140/60
[2024-08-12] MEDS ORDERED: CARVEDILOL6.25 MG PO (12:13)
[2024-08-12] MEDS ORDERED: methylPREDNISolone sod succ 125 MG VIAL IV ONE (12:30)
[2024-08-12 12:47] LABS: BASO % 0.4 % (0.0-1.0); EOS # 0.1 10*3/uL (0.0-0.4); EOS % 0.9 % (1.0-4.0); HEMATOCRIT 26.8 % (37.0-47.0); MEAN CELL VOLUME 101.5 fl (81.0-99.0); MEAN CORPUSCULAR HGB 29.9 pg (27.0-31.0); MEAN CORPUSCULAR HGB CONC 29.5 g/dl (33.0-37.0); MEAN PLATELET VOLUME 11.6 fl (9.6-12.3); MONO # 0.7 10*3/uL (0.1-1.0); MONO % 9.9 % (3.0-9.0); NEUT # 5.2 10*3/uL (2.3-7.9); NEUT % 75.6 % (47.0-73.0); PLATELET COUNT AUTOMATED 186 10*3/uL (130-400); RED BLOOD COUNT 2.64 10*6/uL (4.10-5.10); RED CELL DISTRI WIDTH 14.1 % (0-14.5); WHITE BLOOD COUNT 6.8 10*3/uL (4.8-10.8)
[2024-08-12 13:12] LABS: POTASSIUM 5.4 mmol/L (3.4-5.1)
[2024-08-12] MEDS ORDERED: FUROSEMIDE 40 MG/4 ML VIAL IV ONE (14:15)
[2024-08-12] MEDS ORDERED: INSULIN REGULAR, HUMAN 1 UNIT/0.01 ML IV ONE (14:15)
[2024-08-12 14:30] VITALS: BP 132/56
[2024-08-12 16:32] VITALS: BP 146/59
[2024-08-12] MEDS ORDERED: Insulin Glargine, Recombinan 1 UNIT/0.01 ML SC SCH (22:00)
[2024-08-12] MEDS ORDERED: GABAPENTIN 400 MG CAP PO SCH (22:00)
[2024-08-12] MEDS ORDERED: Acetaminophen/Hydrocodone ES 7.5/325 tablet PO SCH (22:00)
[2024-08-13 05:24] LABS: POTASSIUM 5.3 mmol/L (3.4-5.1)
[2024-08-13] MEDS ORDERED: glyBURIDE 2.5 MG TAB PO ONE (05:31)
[2024-08-13 06:03] LABS: HEMATOCRIT 30.1 % (37.0-47.0); MEAN CELL VOLUME 99.7 fl (81.0-99.0); MEAN CORPUSCULAR HGB 29.5 pg (27.0-31.0); MEAN CORPUSCULAR HGB CONC 29.6 g/dl (33.0-37.0); MONO # 0.1 10*3/uL (0.1-1.0); NEUT % 87.1 % (47.0-73.0); PLATELET COUNT AUTOMATED 161 10*3/uL (130-400); RED BLOOD COUNT 3.02 10*6/uL (4.10-5.10); RED CELL DISTRI WIDTH 13.6 % (0-14.5); WHITE BLOOD COUNT 4.6 10*3/uL (4.8-10.8)
[2024-08-13] MEDS ORDERED: glyBURIDE 5 MG TAB PO SCH (07:30)
[2024-08-13 07:44] VITALS: BP 134/69
[2024-08-13 09:55] VITALS: BP 118/68
[2024-08-13] MEDS ORDERED: APIXABAN 5 MG TAB PO SCH (10:00)
[2024-08-13] MEDS ORDERED: Amiodarone Hydrochloride 200 MG TAB PO SCH (10:00)
[2024-08-13] MEDS ORDERED: FUROSEMIDE 20 MG TAB PO SCH (10:00)
[2024-08-13] MEDS ORDERED: CARVEDILOL 6.25 MG TAB PO SCH (10:00)
[2024-08-13] MEDS ORDERED: amLODIPine besylate 2.5 MG TAB PO SCH (10:00)
[2024-08-13 12:45] VITALS: BP 118/57
[2024-08-13 16:00] VITALS: BP 108/54
[2024-08-13] MEDS ORDERED: DEXTROSE 10 % IN WATER 250 ML IV PRN (17:25)
[2024-08-13 20:00] VITALS: BP 127/40
[2024-08-13] MEDS ORDERED: APIXABAN 2.5 MG TABLET PO SCH (22:00)
[2024-08-13] MEDS ORDERED: INSULIN REGULAR, HUMAN 1 UNIT/0.01 ML SC SCH (22:00)
[2024-08-14] VITALS: BP 165/47
[2024-08-14 00:42] LABS: BILIRUBIN Negative (Negative); BLOOD 1+ (Negative); CLARITY Clear (Clear); COLOR Yellow (Yellow); GLUCOSE 2+ (Negative); KETONE Negative (Negative); LEUKO ESTERASE Negative (Negative); NITRITE Negative (Negative); UROBILINOGEN 0.2 E.U./dl (0.0-1.0)
[2024-08-14 00:50] LABS: BACTERIA 1+
[2024-08-14 00:51] LABS: FINE GRANULAR CAST 0-2; YEAST 1+
[2024-08-14 02:00] VITALS: BP 146/52
[2024-08-14 06:45] LABS: ALKALINE PHOSPHATASE 70 U/L (46-116); CHLORIDE 102 mmol/L (98-107); POTASSIUM 4.6 mmol/L (3.4-5.1); TOTAL PROTEIN 6.3 gm/dL (6.0-8.0)
[2024-08-14 07:04] LABS: BASO % 0.3 % (0.0-1.0); EOS % 0.3 % (1.0-4.0); HEMATOCRIT 25.3 % (37.0-47.0); MEAN CORPUSCULAR HGB 29.6 pg (27.0-31.0); MEAN CORPUSCULAR HGB CONC 29.6 g/dl (33.0-37.0); MEAN PLATELET VOLUME 12.3 fl (9.6-12.3); MONO # 0.7 10*3/uL (0.1-1.0); NEUT # 4.6 10*3/uL (2.3-7.9); NEUT % 64.7 % (47.0-73.0); PLATELET COUNT AUTOMATED 203 10*3/uL (130-400); RED BLOOD COUNT 2.53 10*6/uL (4.10-5.10); RED CELL DISTRI WIDTH 13.7 % (0-14.5)
[2024-08-14 07:10] LABS: BUN 53 mg/dl (9-23); SGPT/ALT < 7 U/L (5-49)
[2024-08-14 08:00] VITALS: BP 133/58
[2024-08-14] MEDS ORDERED: CARVEDILOL 3.125 MG TAB PO SCH (10:00)
[2024-08-14 12:00] VITALS: BP 125/62
[2024-08-14 16:00] VITALS: BP 137/56
[2024-08-14 20:00] VITALS: BP 141/51
[2024-08-15] VITALS: BP 136/54
[2024-08-15 06:34] LABS: BASO % 0.4 % (0.0-1.0); EOS # 0.1 10*3/uL (0.0-0.4); EOS % 1.1 % (1.0-4.0); HEMATOCRIT 24.9 % (37.0-47.0); MEAN CORPUSCULAR HGB 29.7 pg (27.0-31.0); MEAN CORPUSCULAR HGB CONC 29.7 g/dl (33.0-37.0); MEAN PLATELET VOLUME 12.8 fl (9.6-12.3); MONO # 0.7 10*3/uL (0.1-1.0); NEUT # 3.6 10*3/uL (2.3-7.9); NEUT % 63.2 % (47.0-73.0); PLATELET COUNT AUTOMATED 164 10*3/uL (130-400); RED BLOOD COUNT 2.49 10*6/uL (4.10-5.10); RED CELL DISTRI WIDTH 13.9 % (0-14.5); WHITE BLOOD COUNT 5.7 10*3/uL (4.8-10.8)
[2024-08-15 06:51] LABS: ALKALINE PHOSPHATASE 68 U/L (46-116); BUN 50 mg/dl (9-23); CHLORIDE 104 mmol/L (98-107); TOTAL PROTEIN 6.1 gm/dL (6.0-8.0)
[2024-08-15 06:56] LABS: SGPT/ALT < 7 U/L (5-49)
[2024-08-15 08:00] VITALS: BP 124/48
[2024-08-15] MEDS ORDERED: CARVEDILOL3.125 MG PO (09:10)
[2024-08-15] MEDS ORDERED: ELIQUIS2.5 M1 PO (09:10)
[2024-08-15 12:00] VITALS: BP 131/50
== END 2024-08-15 14:34 | disposition home or self-care (01) | DRG 291 ==
LOC: ED 11:33 → EDHOLD 14:31 → 4E 14:31
PROVIDERS: Internal Medicine; Internal Medicine Nephrology; Physician Assistant Medical; ADMIT Internal Medicine; ATTEND Internal Medicine
DX: I50.33 Acute on chronic diastolic (congestive) heart failure (principal); J96.01 Acute respiratory failure with hypoxia; K85.90 Acute pancreatitis without necrosis or infection, unspecified; N17.0 Acute kidney failure with tubular necrosis; K86.3 Pseudocyst of pancreas; I48.21 Permanent atrial fibrillation; J44.1 Chronic obstructive pulmonary disease with (acute) exacerbation; N18.4 Chronic kidney disease, stage 4 (severe); E44.0 Moderate protein-calorie malnutrition; Z68.41 Body mass index [BMI] 40.0-44.9, adult; E87.5 Hyperkalemia; L89.151 Pressure ulcer of sacral region, stage 1; D63.8 Anemia in other chronic diseases classified elsewhere; R62.7 Adult failure to thrive; E11.649 Type 2 diabetes mellitus with hypoglycemia without coma; J44.9 Chronic obstructive pulmonary disease, unspecified; I48.0 Paroxysmal atrial fibrillation; D53.9 Nutritional anemia, unspecified; R26.2 Difficulty in walking, not elsewhere classified; E88.09 Other disorders of plasma-protein metabolism, not elsewhere classified; I87.2 Venous insufficiency (chronic) (peripheral); E11.22 Type 2 diabetes mellitus with diabetic chronic kidney disease; T50.2X5A Adverse effect of carbonic-anhydrase inhibitors, benzothiadiazides and other diuretics, initial encounter; Y92.89 Other specified places as the place of occurrence of the external cause; Z79.4 Long term (current) use of insulin; Z79.899 Other long term (current) drug therapy; Z79.1 Long term (current) use of non-steroidal anti-inflammatories (NSAID); Z91.199 Patient's noncompliance with other medical treatment and regimen due to unspecified reason; Z90.710 Acquired absence of both cervix and uterus; Z98.51 Tubal ligation status

== ENCOUNTER 2024-09-11 15:24 | Emergency (ER) | payer OTHER ==
[~2024-09-11] VITALS: Ht 157.4 cm; Wt 99.8 kg
[~2024-09-11 15:24] MED LIST changes: +CARVEDILOL3.125 MG PO; +CARVEDILOL6.25 MG PO; +CYMBALTA30 MG PO; +ELIQUIS2.5 M1 PO; +NOVOLOG FL100 UNIT/2 SC; +PREMIERPRO RX500 M2 IV
[2024-09-11] MEDS ORDERED: Ondansetron Hydrochloride 4 MG/2 ML VIAL IV ONE (17:05)
[2024-09-11] MEDS ORDERED: SODIUM CHLORIDE 0.9% 1,000 ML IV ONE (17:05)
[2024-09-11 17:44] LABS: BASO % 0.9 % (0.0-1.0); EOS # 0.1 10*3/uL (0.0-0.4); EOS % 2.1 % (1.0-4.0); HEMATOCRIT 31.8 % (37.0-47.0); MEAN CORPUSCULAR HGB 28.7 pg (27.0-31.0); MEAN CORPUSCULAR HGB CONC 29.6 g/dl (33.0-37.0); MEAN PLATELET VOLUME 12.1 fl (9.6-12.3); MONO # 0.3 10*3/uL (0.1-1.0); MONO % 7.1 % (3.0-9.0); NEUT # 3.1 10*3/uL (2.3-7.9); NEUT % 73.3 % (47.0-73.0); PLATELET COUNT AUTOMATED 158 10*3/uL (130-400); RED BLOOD COUNT 3.28 10*6/uL (4.10-5.10); RED CELL DISTRI WIDTH 13.1 % (0-14.5); WHITE BLOOD COUNT 4.2 10*3/uL (4.8-10.8)
[2024-09-11 18:06] LABS: ALKALINE PHOSPHATASE 66 U/L (46-116); BUN 18 mg/dl (9-23); CHLORIDE 99 mmol/L (98-107); LIPASE 86 U/L (12-53); TOTAL PROTEIN 6.9 gm/dL (6.0-8.0)
[2024-09-11 18:10] LABS: SGPT/ALT < 7 U/L (5-49)
[2024-09-11] MEDS ORDERED: Ondansetron4 MG PO (18:58)
[2024-09-11] MEDS ORDERED: Ondansetron 4 MG 2 TAB ED PACK PO SCH (19:00)
[2024-09-11] MEDS ORDERED: Promethazine Hydrochloride 25 MG TAB PO ONE (19:50)
== END 2024-09-11 19:43 | disposition home or self-care (01) ==
LOC: ED 15:24
PROVIDERS: Nurse Practitioner Family
DX: R11.0 Nausea (principal); J90 Pleural effusion, not elsewhere classified; I10 Essential (primary) hypertension; K21.9 Gastro-esophageal reflux disease without esophagitis; M19.90 Unspecified osteoarthritis, unspecified site; E11.9 Type 2 diabetes mellitus without complications; Z90.710 Acquired absence of both cervix and uterus; Z98.890 Other specified postprocedural states

== ENCOUNTER → 2025-03-13 | Outpatient (CLI) | payer OTHER ==
[~2025-03-13] MED LIST changes: +AMLODIPINE BES2.5 MG PO; +AMLODIPINE BESYL5 MG PO; +INSULIN SLIDING; +LANTUS100 UNIT/1 SC; +LASIX20 MG PO; +LEVOTHYROXINE50 MCG PO; +METOPROLOL SUCC25 M2 PO; +Ondansetron4 MG PO; +TRAD5TAB1 PO
[2025-03-13 11:12] LABS: BASO # 0.0 10*3/uL (0.0-0.1); BASO % 0.4 % (0.0-1.0); EOS # 0.2 10*3/uL (0.0-0.4); EOS % 2.4 % (1.0-4.0); MEAN CELL VOLUME 98.0 fl (81.0-99.0); MEAN CORPUSCULAR HGB 30.0 pg (27.0-31.0); MEAN PLATELET VOLUME 9.8 fl (9.6-12.3); MONO # 0.4 10*3/uL (0.1-1.0); MONO % 6.1 % (3.0-9.0); NEUT # 5.0 10*3/uL (2.3-7.9); NEUT % 75.0 % (47.0-73.0); NUCLEATED RED BLOOD CELL 0.0 % (0.0-0.0); NUCLEATED RED BLOOD CELL 0.0 10*3/uL (0.0-0.0); PLATELET COUNT AUTOMATED 149 10*3/uL (130-400); RED CELL DISTRI WIDTH 15.3 % (0-14.5)
[2025-03-13 11:50] LABS: BUN 41.0 mg/dl (9-23); SGPT/ALT 9.0 U/L (5-49)
[2025-03-13 11:53] LABS: VITAMIN D, 25-HYDROXY 46.5 ng/mL (30-100)
== END | disposition home or self-care (01) ==
LOC: LAB 10:47
PROVIDERS: ATTEND Internal Medicine Nephrology
DX: N18.31 Chronic kidney disease, stage 3a (principal); D63.1 Anemia in chronic kidney disease; N17.9 Acute kidney failure, unspecified; E83.9 Disorder of mineral metabolism, unspecified

== ENCOUNTER → 2025-03-27 | Outpatient (CLI) | payer OTHER | END | disposition home or self-care (01) | LOC: US 01:06 | PROVIDERS: ATTEND Internal Medicine Nephrology | DX: N20.0 Calculus of kidney (principal); N17.9 Acute kidney failure, unspecified; N18.4 Chronic kidney disease, stage 4 (severe) ==

== ENCOUNTER → 2025-05-08 | Outpatient (CLI) | payer OTHER ==
[2025-05-08 11:47] LABS: BUN 50.0 mg/dl (9-23); SGPT/ALT 8.0 U/L (5-49)
[2025-05-08 11:52] LABS: VITAMIN D, 25-HYDROXY 36.1 ng/mL (30-100)
== END | disposition home or self-care (01) ==
LOC: LAB 10:40
PROVIDERS: ATTEND Internal Medicine Nephrology
DX: N18.4 Chronic kidney disease, stage 4 (severe) (principal); D63.1 Anemia in chronic kidney disease; E83.9 Disorder of mineral metabolism, unspecified; N17.9 Acute kidney failure, unspecified

== ENCOUNTER → 2025-06-01 | Outpatient (CLI) | payer OTHER ==
[2025-06-01 11:28] LABS: BUN 40.0 mg/dl (9-23); SGPT/ALT 10.0 U/L (5-49)
[2025-06-01 11:40] LABS: BILIRUBIN Negative (Negative); BLOOD 2+ (Negative); CLARITY Cloudy (Clear); COLOR Yellow (Yellow); KETONE Negative (Negative); LEUKO ESTERASE 2+ (Negative); NITRITE Negative (Negative); PH 5.0 (4.5-8.0); SPECIFIC GRAVITY 1.020 (1.001-1.030); UROBILINOGEN 0.2 E.U./dl (0.0-1.0)
[2025-06-01 12:00] LABS: BACTERIA 4+; RBC 21-30 rbc/hpf (0-2); WBC TNTC wbc/hpf (0-5)
[2025-06-01 12:06] LABS: VITAMIN D, 25-HYDROXY 25.3 ng/mL (30-100)
== END | disposition home or self-care (01) ==
LOC: LAB 10:33
PROVIDERS: ATTEND Family Medicine
DX: N18.4 Chronic kidney disease, stage 4 (severe) (principal); D63.1 Anemia in chronic kidney disease; N17.9 Acute kidney failure, unspecified; N25.81 Secondary hyperparathyroidism of renal origin

== ENCOUNTER → 2025-06-02 | Outpatient (CLI) | payer OTHER ==
[2025-06-02 10:00] LABS: BASO # 0.0 10*3/uL (0.0-0.1); BASO % 0.6 % (0.0-1.0); EOS # 0.1 10*3/uL (0.0-0.4); EOS % 2.8 % (1.0-4.0); MEAN CELL VOLUME 96.2 fl (81.0-99.0); MEAN CORPUSCULAR HGB 29.7 pg (27.0-31.0); MEAN PLATELET VOLUME 10.2 fl (9.6-12.3); MONO # 0.4 10*3/uL (0.1-1.0); MONO % 7.9 % (3.0-9.0); NEUT # 3.5 10*3/uL (2.3-7.9); NEUT % 71.0 % (47.0-73.0); NUCLEATED RED BLOOD CELL 0.0 % (0.0-0.0); NUCLEATED RED BLOOD CELL 0.0 10*3/uL (0.0-0.0); PLATELET COUNT AUTOMATED 135 10*3/uL (130-400); RED CELL DISTRI WIDTH 14.6 % (0-14.5)
== END | disposition home or self-care (01) ==
LOC: LAB 09:36
PROVIDERS: ATTEND Internal Medicine Nephrology
DX: N18.4 Chronic kidney disease, stage 4 (severe) (principal); N17.9 Acute kidney failure, unspecified; N25.81 Secondary hyperparathyroidism of renal origin; D63.1 Anemia in chronic kidney disease

== ENCOUNTER → 2025-06-12 | Outpatient (CLI) | payer OTHER ==
[~2025-06-12] MED LIST changes: +CALCITRIOL0.25 MCG PO; +LEXAPRO5 M1 PO; +WARFARIN SODIU2.5 MG PO
[2025-06-12 12:33] LABS: BUN 58 mg/dl (9-23)
[2025-06-12 12:35] LABS: SGPT/ALT < 7 U/L (5-49)
[2025-06-13 17:07] LABS: NUCLEOLAR PATTERN 1:160 (.)
[2025-06-14 15:07] LABS: ALBUMIN, URINE 64.0 % (.); ALPHA-1-GLOBULIN, URINE 4.7 % (.); ALPHA-2-GLOBULIN, URINE 6.6 % (.); BETA GLOBULIN, URINE 11.7 % (.); GAMMA GLOBULIN, URINE 13.0 % (.); M-SPIKE, % Comment: % (Not Observed); PROTEIN,TOTAL - URINE RANDOM 273.2 mg/dL (Not Estab.)
== END | disposition home or self-care (01) ==
LOC: LAB 11:15
PROVIDERS: ATTEND Internal Medicine Nephrology
DX: R80.1 Persistent proteinuria, unspecified (principal)

== ENCOUNTER → 2025-07-03 | Outpatient (CLI) | payer OTHER ==
[~2025-07-03] MED LIST changes: +APRESOLINE10 MG PO; +FOSFOMYCIN TROME3 GM PO
== END | disposition home or self-care (01) ==
LOC: LAB 09:31
PROVIDERS: ATTEND Internal Medicine
DX: Z13.0 Encounter for screening for diseases of the blood and blood-forming organs and certain disorders involving the immune mechanism (principal); Z13.1 Encounter for screening for diabetes mellitus; Z13.21 Encounter for screening for nutritional disorder; Z13.220 Encounter for screening for lipoid disorders; Z13.228 Encounter for screening for other metabolic disorders; Z13.6 Encounter for screening for cardiovascular disorders; Z13.89 Encounter for screening for other disorder; E55.9 Vitamin D deficiency, unspecified; D51.9 Vitamin B12 deficiency anemia, unspecified; Z79.01 Long term (current) use of anticoagulants

== ENCOUNTER → 2025-07-19 | Outpatient (CLI) | payer OTHER | END | disposition home or self-care (01) | LOC: LAB 11:07 | PROVIDERS: ATTEND Internal Medicine | DX: Z51.81 Encounter for therapeutic drug level monitoring (principal); D51.9 Vitamin B12 deficiency anemia, unspecified; E55.9 Vitamin D deficiency, unspecified; Z13.0 Encounter for screening for diseases of the blood and blood-forming organs and certain disorders involving the immune mechanism; Z13.1 Encounter for screening for diabetes mellitus; Z13.21 Encounter for screening for nutritional disorder; Z13.220 Encounter for screening for lipoid disorders; Z13.228 Encounter for screening for other metabolic disorders; Z13.6 Encounter for screening for cardiovascular disorders; Z13.89 Encounter for screening for other disorder; Z79.01 Long term (current) use of anticoagulants ==

== ENCOUNTER → 2025-08-04 | Outpatient (CLI) | payer OTHER ==
[2025-08-04 11:17] LABS: BASO # 0.0 10*3/uL (0.0-0.1); BASO % 0.5 % (0.0-1.0); EOS # 0.3 10*3/uL (0.0-0.4); EOS % 4.2 % (1.0-4.0); MEAN CELL VOLUME 94.6 fl (81.0-99.0); MEAN CORPUSCULAR HGB 29.8 pg (27.0-31.0); MEAN PLATELET VOLUME 10.6 fl (9.6-12.3); MONO # 0.4 10*3/uL (0.1-1.0); MONO % 6.7 % (3.0-9.0); NEUT # 4.2 10*3/uL (2.3-7.9); NEUT % 71.2 % (47.0-73.0); NUCLEATED RED BLOOD CELL 0.0 % (0.0-0.0); NUCLEATED RED BLOOD CELL 0.0 10*3/uL (0.0-0.0); PLATELET COUNT AUTOMATED 173 10*3/uL (130-400); RED CELL DISTRI WIDTH 14.6 % (0-14.5)
[2025-08-04 12:05] LABS: BUN 68.0 mg/dl (9-23); SGPT/ALT 10.0 U/L (5-49)
== END | disposition home or self-care (01) ==
LOC: LAB 10:48
PROVIDERS: ATTEND Internal Medicine Nephrology
DX: N18.5 Chronic kidney disease, stage 5 (principal); Z63.1 Problems in relationship with in-laws; N25.81 Secondary hyperparathyroidism of renal origin; R76.89 Other specified abnormal immunological findings in serum; Z79.01 Long term (current) use of anticoagulants; Z99.2 Dependence on renal dialysis